=== PATIENT | female | born 1965 | race Caucasian/White ===

== ENCOUNTER → 2021-04-22 | Outpatient (CLI) | payer OTHER | LOC: HEART 5 10:30 | DX: R05.9 Cough, unspecified (principal); R06.02 Shortness of breath | CPT/HCPCS: 94060; 94729 ==

== ENCOUNTER 2021-09-16 14:22 | Emergency (ER) | payer OTHER ==
[2021-09-16 15:45] LABS: HEMOGLOBIN 13.7 gm/dl (12.3-15.3); RED BLOOD COUNT 4.6 M/UL (4.00-5.10); WHITE BLOOD COUNT 5.4 K/UL (4.5-11.0)
[2021-09-16 16:06] LABS: BUN/CREATININE RATIO 8 (0-10)
[2021-09-16] MEDS ORDERED: CITRATE OF MAG296 ML PO (17:56)
== END 2021-09-16 18:39 | disposition home or self-care (01) ==
LOC: ER1 14:22
PROVIDERS: Emergency Medicine
DX: K59.00 Constipation, unspecified (principal); I10 Essential (primary) hypertension; Z85.72 Personal history of non-Hodgkin lymphomas
CPT/HCPCS: 80053; 81001; 83690; 85025; 87086; 99284; Q9967